=== PATIENT | male | born 1990 | race African-American/Black ===

== ENCOUNTER 2016-10-28 10:34 | Emergency (ER) | payer OTHER ==
[~2016-10-28] VITALS: Ht 195.6 cm; Wt 89.8 kg
[~2016-10-28 10:34] MED LIST: COLCHICINE0.6 M2 PO; IBUPROFEN600 M1 PO
--- NOTE | 2016-10-28 10:47 | ED GENERAL ADULT ---
History of Present Illness General Chief Complaint: Chest Pain Stated Complaint: CHEST PAIN Source: patient Exam Limitations: no limitations Vital Signs & Intake/Output Vital Signs & Intake/Output Vital Signs Date Time Temp Pulse Resp B/P B/P Pulse O2 O2 Flow FiO2 Mean Ox Delivery Rate 10/28 1330 64 18 118/72 100 Room Air 10/28 1201 99 Room Air 10/28 1040 97.0 58 20 125/80 98 Room Air Allergies Coded Allergies: NO KNOWN ALLERGIES (04/18/16) Reconcile Medications Meloxicam (Mobic) 15 MG TABLET 1 TAB PO DAILY PRN pain Triage Note: PT TO ED C/O CHEST PAIN SINCE APRIL. STATES IT COMES AND GOES, STARTED COMING MORE THE PAST WEEK. DENIES N/V/D. C/O FEELING SOB WHEN THE PAIN COMES. RA SATS 98%. PT TO ROOM 3, CHANGED INTO GOWN, EKG IN PROGRESS. AWAITING PROVIDER RUDI. CURRENTLY DENIES C/P. Triage Nurses Notes Reviewed? yes Onset: Abrupt Duration: week(s): Timing: recent history HPI: 10/28/16 11 am This is a 26-year-old man who presents to the emergency department complaining of chest pain. The patient states that he was in his usual state of health until the last 3 months where he developed intermittent left lower rib pain. It 's worse when he takes a deep breath. He denies any shortness of breath. He does smoke cigarettes. He occasionally drinks. He has no problems with his lenses and he has no problems with his joints although he tall. No history of Marfan syndrome. The onset of the symptoms were abrupt, the duration has been several months, the severity is significant as his symptoms required him to come to the emergency department for care. He has left-sided rib pain no nausea vomiting or other complaints. Past History Travel History Traveled to [place] past 21 day No Medical History Any Pertinent Medical History? see below for history Neurological: NONE EENT: NONE Cardiovascular: NONE Respiratory: NONE Gastrointestinal: NONE Hepatic: NONE Renal: NONE Musculoskeletal: NONE Psychiatric: NONE Endocrine: NONE Blood Disorders: NONE Cancer(s): NONE LIVING NURSE/Reproductive: NONE Surgical History Surgical History: non-contributory Psychosocial History What is your primary language Estonian Tobacco Use: Current Daily Use Daily Tobacco Use Amount/Type: => 5 Cigarettes daily ETOH Use: denies use Illicit Drug Use: denies illicit drug use Family History Hx Contributory? No Review of Systems Review of Systems Constitutional: Denies: fever. EENTM: Denies: visual changes. Respiratory: Denies: short of breath. Cardiovascular: Reports: chest pain. GI: Denies: abdominal pain. Genitourinary: Reports: no symptoms. Musculoskeletal: Reports: no symptoms. Skin: Reports: no symptoms. Neurological/Psychological: Reports: no symptoms. Hematologic/Endocrine: Reports: no symptoms. Immunologic/Allergic: Reports: no symptoms. Physical Exam Physical Exam General Appearance: well developed/nourished, awake, anxious, mild distress Head: atraumatic, normal appearance Eyes: Bilateral: normal appearance, PERRL, EOMI. Ears, Nose, Throat: normal pharynx, normal ENT inspection Neck: normal inspection, supple, full range of motion Respiratory: normal breath sounds, no respiratory distress Cardiovascular: regular rate/rhythm Peripheral Pulses: 4+ radial (R), 4+ radial (L) Gastrointestinal: soft, non-tender Back: normal range of motion Extremities: normal inspection, normal range of motion Neurologic/Psych: no motor/sensory deficits, awake, alert, oriented x 3 Skin: intact, normal color, warm/dry Core Measures ACS in differential dx? No CVA/TIA Diagnosis: No Severe Sepsis Present: No Septic Shock Present: No Progress Differential Diagnoses I considered the following diagnoses in my evaluation of the patient: [Aortic dissection, valvular heart disease, costochondritis, pulmonary embolism, acute coronary syndrome, myocarditis] Plan of Care: Orders Procedure Date/time Status TROPONIN LEVEL 10/28 1104 Complete COMPREHENSIVE METABOLIC PANEL 10/28 1104 Complete CBC WITHOUT DIFFERENTIAL 10/28 1104 Complete EKG 10/28 1035 Active Laboratory Tests 10/28/16 1149: Anion Gap 9, Estimated GFR > 60, BUN/Creatinine Ratio 10.0, Glucose 99, Calcium 9.1, Total Bilirubin 0.7, AST 22, ALT 33, Alkaline Phosphatase 41, Troponin I < 0.01, Total Protein 7.3, Albumin 4.2, Globulin 3.1, Albumin/Globulin Ratio 1.4, CBC w Diff NO MAN DIFF REQ, RBC 4.21 L, MCV 89.8, MCH 30.4, RDW 11.9, MPV 8.0, Gran % 57.3, Lymphocytes % 33.4, Monocytes % 7.9, Eosinophils % 0.9, Basophils % 0.5, Absolute Granulocytes 2.5, Absolute Lymphocytes 1.5, Absolute Monocytes 0.3 , Absolute Eosinophils 0, Absolute Basophils 0, PUBS MCHC 33.8 Initial ED EKG: NSR, EARLY REPOLARIZATION Prior EKG: unchanged Departure Departure Disposition: STILL A PATIENT Condition: Stable Clinical Impression Primary Impression: Chest wall pain Referrals: PATIENT HAS NO PRIMARY CARE DR (PCP/Family) Departure Forms: Customer Survey General Discharge Information Prescriptions: Current Visit Scripts Meloxicam (Mobic) 1 TAB PO DAILY PRN pain #30 TAB Comments 10/28/16 1 PM Chest x-ray is negative. Labs are unremarkable. EKG is unchanged. Troponin is nondetectable. He has left lower chest wall pain. There is no shortness of breath at rest. No tachycardia. No hypoxia. His PERC Score is negative and Well score is low risk. He is of low clinical suspicion and based on our protocol - negative. Considered acute coronary syndrome. He is 26 years old. He has no risk factors. He has had the pain intermittently for weeks and a troponin is nondetectable I considered the diagnosis of aortic dissection. He has good equal pulses no wide mediastinum. And the pain is under the left rib. I think he likely has pleuritis secondary to his smoking The patient was instructed to follow-up with the credit risk specialist and as been told to take Mobic for pain Critical Care Note Critical Care Note Critical Care Time: non-applicable
[2016-10-28 11:55] LABS: ABSOLUTE BASOPHIL COUNT 0 /CUMM (0.0-0.2); ABSOLUTE EOSINOPHIL COUNT 0 /CUMM (0.0-0.7); ABSOLUTE GRANULOCYTE CT 2.5 /CUMM (1.4-6.5); ABSOLUTE LYMPH COUNT 1.5 /CUMM (1.2-3.4); ABSOLUTE MONOCYTE COUNT 0.3 /CUMM (0.10-0.60); BASOPHIL % 0.5 % (0.0-2.0); EOSINOPHIL % 0.9 % (0-5); GRANULOCYTE % 57.3 % (42.2-75.2); HEMATOCRIT 37.8 % (42-52); MEAN CORPUSCULAR HGB 30.4 PG (27.0-31.0); MEAN CORPUSCULAR HGB CONC 33.8 G/DL (33.0-37.0); MEAN CORPUSCULAR VOLUME 89.8 FL (80.0-94.0); PLATELET COUNT 155 /CUMM (130-400); RBC DISTRIBUTION WIDTH 11.9 % (11.5-14.5); RED BLOOD CELL CT 4.21 /CUMM (4.70-6.10); WHITE BLOOD CELL COUNT 4.4 /CUMM (4.8-10.8)
--- NOTE | 2016-10-28 11:58 | RADIOLOGY REPORT ---
EXAMINATION: XR PORTABLE CHEST CLINICAL INFORMATION: Rib pain. COMPARISON: Chest x-ray 04/18/2016. TECHNIQUE: Portable frontal view of the chest was obtained. FINDINGS: Both lungs are fairly well-expanded and clear of acute process. The heart size an pulmonary vascularity is normal. No gross bony abnormality seen. IMPRESSION: Unremarkable chest exam. No change from 04/18/2016.
[2016-10-28] MEDS ORDERED: MOBIC15 M1 PO (13:10)
[2016-10-28 13:30] VITALS: BP 118/72
== END 2016-10-28 13:31 ==
LOC: ERH 10:34
PROVIDERS: Emergency Medicine
DX: R07.89 Other chest pain (principal)
CPT/HCPCS: 93005; 93010